=== PATIENT | male | born 1995 | race Caucasian/White ===

== ENCOUNTER 2019-10-24 02:12 | Emergency (ER) | payer BC ==
[~2019-10-24] VITALS: Ht 185.4 cm; Wt 77.2 kg
[2019-10-24 03:21] VITALS: BP 128/69
--- NOTE | 2019-10-24 03:55 | PHYS DOC ---
Past Medical History Past Medical History: No Pertinent History Past Surgical History: No Surgical History Smoking Status: Never Smoker Alcohol Use: None General Adult EDM: Chief Complaint: TREMORS HPI: HPI: Patient is a 23 year old male with no past medical history presents for evaluation of tremor. Onset of tremor 0130hrs while patient was in bed. Patient denies fever, cough, shortness of breath, nausea, vomiting, and abdominal pain. Tremor states until prior to my examination. Father states patient was shaking all over. Patient has no complaints at this time. Discussed workup with labs--- patient decision against. Advised to take tylenol or motrin if symptoms return. Patient advised to follow up with PCP or return for re-evaluation. Review of Systems: Review of Systems: Constitutional: Denies fever or chills. [] Eyes: Denies change in visual acuity. [] HENT: Denies nasal congestion or sore throat. [] Respiratory: Denies cough or shortness of breath. [] Cardiovascular: Denies chest pain or edema. [] GI: Denies abdominal pain, nausea, vomiting, bloody stools or diarrhea. [] : Denies dysuria. [] Musculoskeletal: Denies back pain or joint pain. [positive tremor] Integument: Denies rash. [] Neurologic: Denies headache, focal weakness or sensory changes. [] Endocrine: Denies polyuria or polydipsia. [] Lymphatic: Denies swollen glands. [] Psychiatric: Denies depression or anxiety. [] Heart Score: Risk Factors: Risk Factors: DM, Current or recent (<one month) smoker, HTN, HLP, family history of CAD, obesity. Risk Scores: Score 0 - 3: 2.5% MACE over next 6 weeks - Discharge Home Score 4 - 6: 20.3% MACE over next 6 weeks - Admit for Clinical Observation Score 7 - 10: 72.7% MACE over next 6 weeks - Early Invasive Strategies Physical Exam: PE: Constitutional: Well developed, well nourished, no acute distress, non-toxic appearance. [] HENT: Normocephalic, atraumatic, bilateral external ears normal, no oral exudates, nose normal. [] Eyes: EOMI, conjunctiva normal, no discharge. [] Neck: Normal range of motion, no tenderness, supple, no stridor. [] Cardiovascular:Heart rate regular rhythm, Lungs & Thorax: no respiratory distress Skin: [[place] sunburn hands and shoulder] Back: No tenderness, no CVA tenderness. [] Extremities: , ROM intact, Neurologic: Alert and oriented X 3, normal motor function, normal sensory function, no focal deficits noted. [] Psychologic: Affect normal, judgement normal, mood normal. [] Current Patient Data: Vital Signs: Vital Signs Date Time Temp Pulse Resp B/P (MAP) Pulse Ox O2 Delivery O2 Flow Rate FiO2 10/24/19 03:21 99.2 114 14 128/69 (88) 99 Room Air 99.2 EKG: EKG: [] Radiology/Procedures: Radiology/Procedures: [] Course & Med Decision Making: Course & Med Decision Making Pertinent Labs and Imaging studies reviewed. (See chart for details) [] Dragon Disclaimer: Dragon Disclaimer: This electronic medical record was generated, in whole or in part, using a voice recognition dictation system. Departure Departure Impression: Primary Impression: Tremor Disposition: 01 HOME, SELF-CARE Condition: STABLE Referrals: UNKNOWN PCP NAME (PCP) Patient Instructions: Tremor Justicifation of Admission Dx: Justifications for Admission: Justification of Admission Dx: N/A BASILIO HEREDIA DO Oct 24, 2019 03:55
== END 2019-10-24 04:00 | disposition home or self-care (01) ==
LOC: ER 02:12
DX: R25.1 Tremor, unspecified (principal)
CPT/HCPCS: 99281